=== PATIENT | female | born 1930 | race Caucasian/White ===

== ENCOUNTER 2017-11-02 11:27 | Inpatient (IN) ==
[2017-11-02] MEDS: DEXTROSE 5% NACL 0.45% 1,000 ML IV SCH (12:26)
[2017-11-02] MEDS: cefOXitin 1,000 MG in SYRINGE 1 EACH IV SCH ×2 (14:39→20:55)
[2017-11-03] MEDS: cefOXitin 1,000 MG in SYRINGE 1 EACH IV SCH ×4 (02:55→20:17)
[2017-11-03] MEDS: DEXTROSE 5% NACL 0.45% 1,000 ML IV SCH ×2 (04:41→14:55)
[2017-11-03] MEDS: LISINOPRIL 10 MG TABLET PO SCH (09:35)
[2017-11-03] MEDS: ASPIRIN EC 81 MG TABLET PO SCH (09:35)
[2017-11-03] MEDS: GABAPENTIN 300 MG CAPSULE PO SCH ×3 (09:36→20:17)
[2017-11-03] MEDS: OXYBUTYNIN 5 MG TABLET PO SCH ×2 (09:36→20:17)
[2017-11-03] MEDS: PANTOPRAZOLE 40 MG TABLET PO SCH (09:36)
[2017-11-04] MEDS: cefOXitin 1,000 MG in SYRINGE 1 EACH IV SCH ×4 (01:20→20:34)
[2017-11-04] MEDS: DEXTROSE 5% NACL 0.45% 1,000 ML IV SCH ×2 (04:14→20:34)
[2017-11-04 05:17] LABS: Basophils % 0.4 % (0.0-0.8); Eosinophils # 0.3 10*3/uL (0.0-0.87); Eosinophils % 2.9 % (0.00-10.9); Hematocrit 33.6 VOL% (35.7-47.0); Hemoglobin 11.2 GM/DL (12.0-16.0); Immature Granulocytes % 0.1 %; Immature Granulocytes Absolute 0.01 #; Lymphocytes # 5.3 10*3/uL (1.4-4.0); Mean Corpuscular HGB Conc 33.3 GM/DL (32-36); Mean Corpuscular Hemoglobin 31 PG (27-34); Mean Corpuscular Volume 93.6 FL (87-102); Mean Platelet Volume 10.1 FL (9.6-12.0); Monocytes # 0.7 10*3/uL (0.11-0.8); Monocytes % 6.5 % (1.7-12.7); Neutrophils # 3.7 10*3/uL (1.4-7.4); Neutrophils % 37.1 % (38.7-73.9); Platelet Count 201 T/CUMM (130-400); Red Blood Count 3.59 MC/CUMM (3.8-5.5); Red Cell Distribution Width 13.2 % (9.3-17.3)
[2017-11-04 06:24] LABS: Band Neutrophils 3 % (0-10); Eosinophils 2 % (0-10); Lymphocytes 51 % (20-55); Metamyelocytes 3 %; Platelet Estimate Normal; Segmented Neutrophils 34 % (50-85); Total Cells Counted 100
[2017-11-04 07:40] LABS: Sedimentation Rate-Westergren 14 MM/HR (0-30)
[2017-11-04] MEDS: GABAPENTIN 300 MG CAPSULE PO SCH ×3 (09:38→20:34)
[2017-11-04] MEDS: OXYBUTYNIN 5 MG TABLET PO SCH ×2 (09:38→20:34)
[2017-11-04] MEDS: ASPIRIN EC 81 MG TABLET PO SCH (09:38)
[2017-11-04] MEDS: LISINOPRIL 10 MG TABLET PO SCH (09:39)
[2017-11-04] MEDS: PANTOPRAZOLE 40 MG TABLET PO SCH (09:39)
[2017-11-05] MEDS: cefOXitin 1,000 MG in SYRINGE 1 EACH IV SCH ×4 (04:04→21:11)
[2017-11-05 05:53] LABS: Basophils # 0.1 10*3/uL (0.0-0.2); Basophils % 0.5 % (0.0-0.8); Eosinophils # 0.5 10*3/uL (0.0-0.87); Eosinophils % 3.9 % (0.00-10.9); Hematocrit 34.4 VOL% (35.7-47.0); Hemoglobin 11.5 GM/DL (12.0-16.0); Immature Granulocytes % 0.3 %; Immature Granulocytes Absolute 0.04 #; Lymphocytes # 7.4 10*3/uL (1.4-4.0); Lymphocytes % 57.7 % (21.3-54.2); Mean Corpuscular HGB Conc 33.4 GM/DL (32-36); Mean Corpuscular Hemoglobin 31 PG (27-34); Mean Platelet Volume 10.4 FL (9.6-12.0); Monocytes # 0.6 10*3/uL (0.11-0.8); Monocytes % 4.5 % (1.7-12.7); Neutrophils # 4.2 10*3/uL (1.4-7.4); Neutrophils % 33.1 % (38.7-73.9); Platelet Count 211 T/CUMM (130-400); Red Blood Count 3.74 MC/CUMM (3.8-5.5); Red Cell Distribution Width 12.9 % (9.3-17.3); White Blood Count 12.8 T/CUMM (4-12)
[2017-11-05 06:34] LABS: Band Neutrophils 1 % (0-10); Eosinophils 5 % (0-10); Giant Platelets Few; Hypochromasia 1+; Lymphocytes 45 % (20-55); Ovalocytes Slight; Platelet Estimate Adequate; Segmented Neutrophils 44 % (50-85); Total Cells Counted 100
[2017-11-05] MEDS: ASPIRIN EC 81 MG TABLET PO SCH (08:52)
[2017-11-05] MEDS: GABAPENTIN 300 MG CAPSULE PO SCH ×3 (08:53→21:11)
[2017-11-05] MEDS: PANTOPRAZOLE 40 MG TABLET PO SCH (08:53)
[2017-11-05] MEDS: OXYBUTYNIN 5 MG TABLET PO SCH ×2 (08:53→21:11)
[2017-11-05] MEDS: LISINOPRIL 10 MG TABLET PO SCH (08:54)
[2017-11-05] MEDS: DEXTROSE 5% NACL 0.45% 1,000 ML IV SCH (10:13)
[2017-11-06] MEDS: cefOXitin 1,000 MG in SYRINGE 1 EACH IV SCH ×4 (01:06→20:38)
[2017-11-06] MEDS: DEXTROSE 5% NACL 0.45% 1,000 ML IV SCH ×2 (01:07→14:29)
[2017-11-06 05:19] LABS: Basophils % 0.2 % (0.0-0.8); Eosinophils # 0.5 10*3/uL (0.0-0.87); Eosinophils % 5.5 % (0.00-10.9); Hemoglobin 10.6 GM/DL (12.0-16.0); Immature Granulocytes % 0.2 %; Immature Granulocytes Absolute 0.02 #; Lymphocytes # 5.1 10*3/uL (1.4-4.0); Lymphocytes % 51.7 % (21.3-54.2); Mean Corpuscular HGB Conc 33.1 GM/DL (32-36); Mean Corpuscular Hemoglobin 31 PG (27-34); Mean Platelet Volume 10.2 FL (9.6-12.0); Monocytes # 0.8 10*3/uL (0.11-0.8); Monocytes % 7.6 % (1.7-12.7); Neutrophils # 3.5 10*3/uL (1.4-7.4); Neutrophils % 34.8 % (38.7-73.9); Platelet Count 198 T/CUMM (130-400); Red Blood Count 3.48 MC/CUMM (3.8-5.5); White Blood Count 9.9 T/CUMM (4-12)
[2017-11-06 05:51] LABS: Band Neutrophils 1 % (0-10); Eosinophils 5 % (0-10); Lymphocytes 58 % (20-55); Segmented Neutrophils 29 % (50-85); Total Cells Counted 100
[2017-11-06 05:55] LABS: Hypochromasia 1+; Platelet Estimate Normal
[2017-11-06 05:56] LABS: Giant Platelets Few
[2017-11-06] MEDS: GABAPENTIN 300 MG CAPSULE PO SCH ×3 (09:32→20:38)
[2017-11-06] MEDS: OXYBUTYNIN 5 MG TABLET PO SCH ×2 (09:32→20:38)
[2017-11-06] MEDS: PANTOPRAZOLE 40 MG TABLET PO SCH (09:32)
[2017-11-06] MEDS: ASPIRIN EC 81 MG TABLET PO SCH (09:32)
[2017-11-06] MEDS: LISINOPRIL 10 MG TABLET PO SCH (09:32)
[2017-11-07] MEDS: DEXTROSE 5% NACL 0.45% 1,000 ML IV SCH (02:34)
[2017-11-07] MEDS: cefOXitin 1,000 MG in SYRINGE 1 EACH IV SCH ×2 (02:37→09:07)
[2017-11-07] MEDS ORDERED: POLYETHYLENE GLYCOL POWDER 17 GM PACK PO SCH (09:00)
[2017-11-07] MEDS: LISINOPRIL 10 MG TABLET PO SCH (09:06)
[2017-11-07] MEDS: PANTOPRAZOLE 40 MG TABLET PO SCH (09:07)
[2017-11-07] MEDS: GABAPENTIN 300 MG CAPSULE PO SCH (09:07)
[2017-11-07] MEDS: ASPIRIN EC 81 MG TABLET PO SCH (09:07)
[2017-11-07] MEDS: OXYBUTYNIN 5 MG TABLET PO SCH (09:07)
[2017-11-07 11:26] VITALS: BP 121/68
== END 2017-11-07 13:34 | disposition home or self-care (01) | DRG 392 ==
LOC: N.3E
PROVIDERS: ADMIT Surgery; ATTEND Surgery

== ENCOUNTER 2017-11-10 17:37 | Inpatient (IN) ==
[2017-11-10] MEDS ORDERED: SODIUM CHLORIDE 0.9% 1,000 ML IV STA (18:04)
[2017-11-10] MEDS ORDERED: ONDANSETRON 4 MG/2 ML VIAL IV STA (18:04)
[2017-11-10] MEDS ORDERED: ALBUTEROL/IPRATROPIUM 3 ML NEB RESP TX STA (18:04)
[2017-11-10] MEDS ORDERED: cefTRIAXone 1,000 MG in SODIUM CHLORIDE 0.9% 100 ML IV STA (18:04)
[2017-11-10] MEDS ORDERED: METOCLOPRAMIDE 10 MG/2 ML VIAL IV STA (18:04)
[2017-11-10] MEDS ORDERED: metroNIDAZOLE INJ 500 MG in PREMIX 1 EACH IV STA (18:04)
[2017-11-10 19:21] LABS: Basophils % 0.2 % (0.0-0.8); Hematocrit 39.2 VOL% (35.7-47.0); Hemoglobin 12.7 GM/DL (12.0-16.0); Immature Granulocytes % 0.6 %; Immature Granulocytes Absolute 0.12 #; Lymphocytes # 7.1 10*3/uL (1.4-4.0); Lymphocytes % 35.3 % (21.3-54.2); Mean Corpuscular HGB Conc 32.4 GM/DL (32-36); Mean Corpuscular Hemoglobin 30 PG (27-34); Mean Corpuscular Volume 93.8 FL (87-102); Mean Platelet Volume 10.2 FL (9.6-12.0); Monocytes # 1.4 10*3/uL (0.11-0.8); Monocytes % 6.8 % (1.7-12.7); Neutrophils # 11.5 10*3/uL (1.4-7.4); Neutrophils % 57.1 % (38.7-73.9); Platelet Count 243 T/CUMM (130-400); Red Blood Count 4.18 MC/CUMM (3.8-5.5); Red Cell Distribution Width 13.2 % (9.3-17.3); White Blood Count 20.2 T/CUMM (4-12)
[2017-11-10] MEDS ORDERED: METOCLOPRAMIDE 10 MG/2 ML VIAL ONE (19:30)
[2017-11-10] MEDS ORDERED: cefTRIAXone 1,000 MG VIAL ONE (19:30)
[2017-11-10] MEDS ORDERED: metroNIDAZOLE 500 MG/100 ML PREMIX IV ONE (19:30)
[2017-11-10] MEDS ORDERED: ONDANSETRON 4 MG/2 ML VIAL ONE (19:31)
[2017-11-10 19:40] LABS: Albumin 3.8 G/DL (3.4-5.0); Bilirubin,Total 0.4 MG/DL (0.2-1.0); Calcium 8.9 MG/DL (8.5-10.1); Lactic Acid 1.5 MMOL/L (0.4-2.0); Osmolality,Calculated 275.2 MOS/KG (273-304); Potassium 4.1 MMOL/L (3.5-5.1); Total Protein 7.5 G/DL (6.4-8.3)
[2017-11-11] MEDS ORDERED: HYDROmorphone 2 MG/1 ML VIAL IV PRN (00:15)
[2017-11-11] MEDS ORDERED: ONDANSETRON 4 MG/2 ML VIAL IV PRN (00:15)
[2017-11-11] MEDS: metroNIDAZOLE INJ 500 MG in PREMIX 1 EACH IV SCH ×5 (01:13→23:32)
[2017-11-11] MEDS: LACTATED RINGERS 1,000 ML IV SCH ×4 (01:13→21:41)
[2017-11-11] MEDS: METOCLOPRAMIDE 10 MG/2 ML VIAL IV SCH ×5 (01:14→23:13)
[2017-11-11 08:07] LABS: Basophils % 0.2 % (0.0-0.8); Eosinophils % 0.1 % (0.00-10.9); Hematocrit 33.1 VOL% (35.7-47.0); Immature Granulocytes % 0.4 %; Immature Granulocytes Absolute 0.06 #; Lymphocytes # 4.7 10*3/uL (1.4-4.0); Lymphocytes % 30.2 % (21.3-54.2); Mean Corpuscular HGB Conc 32.3 GM/DL (32-36); Mean Corpuscular Hemoglobin 30 PG (27-34); Mean Corpuscular Volume 93.8 FL (87-102); Mean Platelet Volume 10.1 FL (9.6-12.0); Monocytes % 6.7 % (1.7-12.7); Neutrophils # 9.6 10*3/uL (1.4-7.4); Neutrophils % 62.4 % (38.7-73.9); Platelet Count 212 T/CUMM (130-400); Red Blood Count 3.53 MC/CUMM (3.8-5.5); Red Cell Distribution Width 13.2 % (9.3-17.3); White Blood Count 15.4 T/CUMM (4-12)
[2017-11-11 08:10] LABS: Hemoglobin 10.7 GM/DL (12.0-16.0)
[2017-11-11 08:28] LABS: Lactic Acid 0.8 MMOL/L (0.4-2.0)
[2017-11-11 08:40] LABS: Alanine Aminotransferase 19 U/L (13-56); Albumin 2.9 G/DL (3.4-5.0); Alkaline Phosphatase 45 U/L (45-117); Aspartate Amino Transferase 21 U/L (0-37); Bilirubin,Total < 0.39 MG/DL (0.2-1.0); Blood Urea Nitrogen 18 MG/DL (7-18); Calcium 7.9 MG/DL (8.5-10.1); Glucose 101 MG/DL (74-106); Osmolality,Calculated 282.3 MOS/KG (273-304); Potassium 4.3 MMOL/L (3.5-5.1); Sodium 141 MMOL/L (136-145); Total Protein 5.5 G/DL (6.4-8.3)
[2017-11-11] MEDS: PANTOPRAZOLE 40 MG VIAL IV SCH (09:27)
[2017-11-11] MEDS: cefTRIAXone 2,000 MG in SYRINGE 1 EACH IV SCH (17:52)
[2017-11-12 03:37] LABS: Basophils # 0.1 10*3/uL (0.0-0.2); Basophils % 0.2 % (0.0-0.8); Eosinophils % 0.1 % (0.00-10.9); Hematocrit 33.7 VOL% (35.7-47.0); Hemoglobin 11.2 GM/DL (12.0-16.0); Immature Granulocytes % 0.4 %; Immature Granulocytes Absolute 0.09 #; Lymphocytes # 8.6 10*3/uL (1.4-4.0); Lymphocytes % 40.8 % (21.3-54.2); Mean Corpuscular HGB Conc 33.2 GM/DL (32-36); Mean Corpuscular Hemoglobin 31 PG (27-34); Mean Corpuscular Volume 93.4 FL (87-102); Mean Platelet Volume 10.7 FL (9.6-12.0); Monocytes # 1.4 10*3/uL (0.11-0.8); Monocytes % 6.7 % (1.7-12.7); Neutrophils # 10.9 10*3/uL (1.4-7.4); Neutrophils % 51.8 % (38.7-73.9); Platelet Count 212 T/CUMM (130-400); Red Blood Count 3.61 MC/CUMM (3.8-5.5); Red Cell Distribution Width 13.2 % (9.3-17.3)
[2017-11-12 03:58] LABS: Calcium 8.2 MG/DL (8.5-10.1); Osmolality,Calculated 282.1 MOS/KG (273-304)
[2017-11-12 05:04] LABS: Lymphocytes 21 % (20-55); Platelet Estimate Normal; Segmented Neutrophils 73 % (50-85); Total Cells Counted 100
[2017-11-12] MEDS: METOCLOPRAMIDE 10 MG/2 ML VIAL IV SCH ×3 (06:02→18:49)
[2017-11-12] MEDS: metroNIDAZOLE INJ 500 MG in PREMIX 1 EACH IV SCH ×3 (06:02→20:21)
[2017-11-12] MEDS: LACTATED RINGERS 1,000 ML IV SCH ×3 (06:05→17:35)
[2017-11-12] MEDS: PANTOPRAZOLE 40 MG VIAL IV SCH (09:16)
[2017-11-12 15:37] LABS: Apearance,Urine Slightly Hazy (Clear); Bacteria,Urine Occasional /HPF (Few); Bilirubin,Urine Negative (Negative); Blood, Urine Moderate mg/dL (Negative); Glucose,Urine (UA) Negative (Negative); Ketones,Urine 80 mg/dL (Negative); Mucus,Urine Occasional /LPF (Occasional); Nitrite,Urine Negative (Negative); Protein,Urine Negative; RBC,Urine 11 /HPF (0-4); Squamous Epithelial Cell,Urine Occasional /HPF (0-10); Urine Color Yellow (Yellow); Urine Specific Gravity 1.014 (1.001-1.035); Urine Urobilinogen < 2.0 EU/DL (0.2-1.0); WBC,Urine 6 /HPF (0-6)
[2017-11-12] MEDS: FAT EMULSION 20% 250 ML IV SCH (18:35)
[2017-11-12] MEDS: cefTRIAXone 2,000 MG in SYRINGE 1 EACH IV SCH (18:51)
[2017-11-12] MEDS: MULTIVITAMIN IV SCH (20:21)
[2017-11-12] MEDS: ELECTROLYTE IV SCH (20:21)
[2017-11-12] MEDS: TRACE ELEMENTS IV SCH (20:21)
[2017-11-12] MEDS: [UNRECOGNIZED DRUG - OTHER] IV SCH (20:21)
[2017-11-13] MEDS: metroNIDAZOLE INJ 500 MG in PREMIX 1 EACH IV SCH ×5 (00:16→23:40)
[2017-11-13] MEDS: METOCLOPRAMIDE 10 MG/2 ML VIAL IV SCH ×5 (00:16→23:40)
[2017-11-13 04:20] LABS: Basophils % 0.1 % (0.0-0.8); Hematocrit 29.7 VOL% (35.7-47.0); Hemoglobin 9.7 GM/DL (12.0-16.0); Immature Granulocytes % 0.8 %; Immature Granulocytes Absolute 0.11 #; Lymphocytes # 2.5 10*3/uL (1.4-4.0); Lymphocytes % 17.9 % (21.3-54.2); Mean Corpuscular HGB Conc 32.7 GM/DL (32-36); Mean Corpuscular Hemoglobin 31 PG (27-34); Mean Corpuscular Volume 93.4 FL (87-102); Mean Platelet Volume 10.7 FL (9.6-12.0); Monocytes # 1.2 10*3/uL (0.11-0.8); Monocytes % 8.3 % (1.7-12.7); Neutrophils # 10.2 10*3/uL (1.4-7.4); Neutrophils % 72.9 % (38.7-73.9); Platelet Count 178 T/CUMM (130-400); Red Blood Count 3.18 MC/CUMM (3.8-5.5); Red Cell Distribution Width 12.8 % (9.3-17.3)
[2017-11-13 04:51] LABS: Calcium 7.7 MG/DL (8.5-10.1); Magnesium 1.8 MG/DL (1.8-2.4); Osmolality,Calculated 289.1 MOS/KG (273-304); Potassium 3.7 MMOL/L (3.5-5.1); Prealbumin 10.8 MG/DL (20-40)
[2017-11-13] MEDS: LACTATED RINGERS 1,000 ML IV SCH ×3 (05:50→19:50)
[2017-11-13] MEDS: PANTOPRAZOLE 40 MG VIAL IV SCH (10:14)
[2017-11-13] MEDS: ALBUTEROL/IPRATROPIUM 3 ML NEB RESP TX SCH ×4 (12:00→23:36)
[2017-11-13] MEDS: cefTRIAXone 2,000 MG in SYRINGE 1 EACH IV SCH (18:49)
[2017-11-13] MEDS: ENOXAPARIN 40 MG/0.4 ML SYRINGE SUBCUT SCH (21:19)
[2017-11-13] MEDS: ELECTROLYTE IV SCH (21:20)
[2017-11-13] MEDS: TRACE ELEMENTS IV SCH (21:20)
[2017-11-13] MEDS: [UNRECOGNIZED DRUG - OTHER] IV SCH (21:20)
[2017-11-13] MEDS: MULTIVITAMIN IV SCH (21:20)
[2017-11-13] MEDS: ACETAMINOPHEN 325 MG TABLET PO PRN (23:40)
[2017-11-14] MEDS: LACTATED RINGERS 1,000 ML IV SCH (02:40)
[2017-11-14 03:24] LABS: Basophils % 0.2 % (0.0-0.8); Eosinophils % 0.1 % (0.00-10.9); Hematocrit 26.6 VOL% (35.7-47.0); Hemoglobin 9.7 GM/DL (12.0-16.0); Immature Granulocytes % 0.5 %; Immature Granulocytes Absolute 0.07 #; Lymphocytes # 4.4 10*3/uL (1.4-4.0); Lymphocytes % 33.2 % (21.3-54.2); Mean Corpuscular HGB Conc 36.5 GM/DL (32-36); Mean Corpuscular Hemoglobin 33 PG (27-34); Mean Corpuscular Volume 89.3 FL (87-102); Mean Platelet Volume 11.9 FL (9.6-12.0); Monocytes # 1.2 10*3/uL (0.11-0.8); Monocytes % 8.7 % (1.7-12.7); Neutrophils # 7.6 10*3/uL (1.4-7.4); Neutrophils % 57.3 % (38.7-73.9); Platelet Count 474 T/CUMM (130-400); Red Blood Count 2.98 MC/CUMM (3.8-5.5); Red Cell Distribution Width 13.4 % (9.3-17.3); White Blood Count 13.2 T/CUMM (4-12)
[2017-11-14 03:52] LABS: Calcium 8.1 MG/DL (8.5-10.1); Magnesium 1.8 MG/DL (1.8-2.4); Osmolality,Calculated 295.6 MOS/KG (273-304); Potassium 3.4 MMOL/L (3.5-5.1)
[2017-11-14 03:53] LABS: Calcium 8.2 MG/DL (8.5-10.1); Magnesium 1.8 MG/DL (1.8-2.4); Osmolality,Calculated 296.6 MOS/KG (273-304); Potassium 3.4 MMOL/L (3.5-5.1)
[2017-11-14] MEDS: ALBUTEROL/IPRATROPIUM 3 ML NEB RESP TX SCH ×5 (03:54→20:54)
[2017-11-14] MEDS: metroNIDAZOLE INJ 500 MG in PREMIX 1 EACH IV SCH ×3 (06:40→20:12)
[2017-11-14] MEDS: METOCLOPRAMIDE 10 MG/2 ML VIAL IV SCH ×3 (06:41→20:07)
[2017-11-14] MEDS: PANTOPRAZOLE 40 MG VIAL IV SCH (10:02)
[2017-11-14] MEDS: FAT EMULSION 20% 250 ML IV SCH (20:06)
[2017-11-14] MEDS: cefTRIAXone 2,000 MG in SYRINGE 1 EACH IV SCH (20:09)
[2017-11-14] MEDS: ENOXAPARIN 40 MG/0.4 ML SYRINGE SUBCUT SCH (21:25)
[2017-11-14] MEDS: ELECTROLYTE IV SCH (21:36)
[2017-11-14] MEDS: [UNRECOGNIZED DRUG - OTHER] IV SCH (21:36)
[2017-11-14] MEDS: TRACE ELEMENTS IV SCH (21:36)
[2017-11-14] MEDS: MULTIVITAMIN IV SCH (21:36)
[2017-11-15] MEDS: METOCLOPRAMIDE 10 MG/2 ML VIAL IV SCH ×5 (00:30→23:45)
[2017-11-15] MEDS: metroNIDAZOLE INJ 500 MG in PREMIX 1 EACH IV SCH ×5 (00:35→23:45)
[2017-11-15] MEDS: ALBUTEROL/IPRATROPIUM 3 ML NEB RESP TX SCH ×7 (00:53→23:25)
[2017-11-15] MEDS: ACETAMINOPHEN 325 MG TABLET PO PRN ×2 (01:35→20:51)
[2017-11-15 06:47] LABS: Basophils % 0.2 % (0.0-0.8); Eosinophils % 0.2 % (0.00-10.9); Hematocrit 27.7 VOL% (35.7-47.0); Hemoglobin 9.1 GM/DL (12.0-16.0); Immature Granulocytes % 1.1 %; Immature Granulocytes Absolute 0.12 #; Lymphocytes # 3.4 10*3/uL (1.4-4.0); Lymphocytes % 29.9 % (21.3-54.2); Mean Corpuscular HGB Conc 32.9 GM/DL (32-36); Mean Corpuscular Hemoglobin 30 PG (27-34); Mean Corpuscular Volume 92.3 FL (87-102); Mean Platelet Volume 10.4 FL (9.6-12.0); Monocytes # 1.1 10*3/uL (0.11-0.8); Monocytes % 9.7 % (1.7-12.7); Neutrophils # 6.7 10*3/uL (1.4-7.4); Neutrophils % 58.9 % (38.7-73.9); Platelet Count 202 T/CUMM (130-400); Red Cell Distribution Width 12.8 % (9.3-17.3); White Blood Count 11.3 T/CUMM (4-12)
[2017-11-15 07:19] LABS: Calcium 7.9 MG/DL (8.5-10.1); Magnesium 1.7 MG/DL (1.8-2.4); Osmolality,Calculated 286.3 MOS/KG (273-304)
[2017-11-15 07:28] LABS: Hypochromasia 1+; Lymphocytes 25 % (20-55); Platelet Estimate Adequate; Segmented Neutrophils 66 % (50-85); Total Cells Counted 100
[2017-11-15] MEDS ORDERED: POTASSIUM CHLORIDE RIDER 10 MEQ in PREMIX 1 EACH IV PRN (08:37)
[2017-11-15] MEDS ORDERED: POTASSIUM CHLORIDE RIDER 20 MEQ in PREMIX 1 EACH IV PRN (08:37)
[2017-11-15] MEDS: PANTOPRAZOLE 40 MG VIAL IV SCH (09:34)
[2017-11-15] MEDS: TRACE ELEMENTS IV SCH (17:28)
[2017-11-15] MEDS: ELECTROLYTE IV SCH (17:28)
[2017-11-15] MEDS: MULTIVITAMIN IV SCH (17:28)
[2017-11-15] MEDS: [UNRECOGNIZED DRUG - OTHER] IV SCH (17:28)
[2017-11-15] MEDS: cefTRIAXone 2,000 MG in SYRINGE 1 EACH IV SCH (17:37)
[2017-11-15] MEDS ORDERED: POTASSIUM PHOSPHATE 30 MMOL in SODIUM CHLORIDE 0.9% 250 ML IV ONE (18:00)
[2017-11-15] MEDS: ENOXAPARIN 40 MG/0.4 ML SYRINGE SUBCUT SCH (20:44)
[2017-11-15] MEDS ORDERED: ZINC OXIDE PASTE 113 GM TUBE TOP PRN (21:04)
[2017-11-16] MEDS: ALBUTEROL/IPRATROPIUM 3 ML NEB RESP TX SCH ×6 (04:02→23:27)
[2017-11-16] MEDS: metroNIDAZOLE INJ 500 MG in PREMIX 1 EACH IV SCH ×3 (05:47→18:31)
[2017-11-16] MEDS: METOCLOPRAMIDE 10 MG/2 ML VIAL IV SCH ×3 (05:51→17:51)
[2017-11-16 06:44] LABS: Calcium 7.7 MG/DL (8.5-10.1); Magnesium 1.8 MG/DL (1.8-2.4); Osmolality,Calculated 283.3 MOS/KG (273-304); Potassium 3.6 MMOL/L (3.5-5.1)
[2017-11-16] MEDS ORDERED: DEXTROSE 10% 1,000 ML IV PRN (09:41)
[2017-11-16] MEDS: PANTOPRAZOLE 40 MG VIAL IV SCH (10:55)
[2017-11-16] MEDS: FAT EMULSION 20% 250 ML IV SCH (14:17)
[2017-11-16] MEDS: TRACE ELEMENTS (5) 1 ML, MULTIVITAMIN INJ 10 ML in AMINO ACIDS/DEXT/LYTES 5-15% 2,000 ML IV SCH (17:50)
[2017-11-16] MEDS: cefTRIAXone 2,000 MG in SYRINGE 1 EACH IV SCH (17:51)
[2017-11-16] MEDS: ENOXAPARIN 40 MG/0.4 ML SYRINGE SUBCUT SCH (20:49)
[2017-11-16] MEDS: ACETAMINOPHEN 325 MG TABLET PO PRN (21:56)
[2017-11-17] MEDS: metroNIDAZOLE INJ 500 MG in PREMIX 1 EACH IV SCH ×4 (01:21→18:35)
[2017-11-17] MEDS: METOCLOPRAMIDE 10 MG/2 ML VIAL IV SCH ×4 (01:31→18:24)
[2017-11-17] MEDS: ALBUTEROL/IPRATROPIUM 3 ML NEB RESP TX SCH ×5 (04:31→21:32)
[2017-11-17 06:01] LABS: Basophils % 0.4 % (0.0-0.8); Eosinophils # 0.7 10*3/uL (0.0-0.87); Eosinophils % 6.3 % (0.00-10.9); Hematocrit 30.4 VOL% (35.7-47.0); Immature Granulocytes % 0.9 %; Immature Granulocytes Absolute 0.09 #; Lymphocytes # 3.7 10*3/uL (1.4-4.0); Lymphocytes % 35.1 % (21.3-54.2); Mean Corpuscular HGB Conc 32.9 GM/DL (32-36); Mean Corpuscular Hemoglobin 30 PG (27-34); Mean Corpuscular Volume 90.5 FL (87-102); Mean Platelet Volume 10.7 FL (9.6-12.0); Monocytes % 9.2 % (1.7-12.7); Neutrophils # 5.1 10*3/uL (1.4-7.4); Neutrophils % 48.1 % (38.7-73.9); Platelet Count 263 T/CUMM (130-400); Red Blood Count 3.36 MC/CUMM (3.8-5.5); Red Cell Distribution Width 12.7 % (9.3-17.3); White Blood Count 10.6 T/CUMM (4-12)
[2017-11-17 06:24] LABS: Eosinophils 5 % (0-10); Giant Platelets Few; Hypochromasia 1+; Lymphocytes 29 % (20-55); Ovalocytes Slight; Platelet Estimate Adequate; Segmented Neutrophils 53 % (50-85); Total Cells Counted 100
[2017-11-17 06:31] LABS: Calcium 7.8 MG/DL (8.5-10.1); Magnesium 1.8 MG/DL (1.8-2.4); Osmolality,Calculated 281.3 MOS/KG (273-304); Potassium 3.6 MMOL/L (3.5-5.1)
[2017-11-17] MEDS: PANTOPRAZOLE 40 MG VIAL IV SCH (08:27)
[2017-11-17] MEDS: FAT EMULSION 20% 250 ML IV SCH (15:51)
[2017-11-17] MEDS: TRACE ELEMENTS (5) 1 ML, MULTIVITAMIN INJ 10 ML in AMINO ACIDS/DEXT/LYTES 5-15% 2,000 ML IV SCH (17:23)
[2017-11-17] MEDS: cefTRIAXone 2,000 MG in SYRINGE 1 EACH IV SCH (18:24)
[2017-11-17] MEDS: ENOXAPARIN 40 MG/0.4 ML SYRINGE SUBCUT SCH (21:31)
[2017-11-18 00:13] LABS: Basophils # 0.1 10*3/uL (0.0-0.2); Basophils % 0.4 % (0.0-0.8); Eosinophils # 0.8 10*3/uL (0.0-0.87); Eosinophils % 6.2 % (0.00-10.9); Hematocrit 33.2 VOL% (35.7-47.0); Immature Granulocytes % 0.7 %; Lymphocytes # 4.6 10*3/uL (1.4-4.0); Lymphocytes % 34.7 % (21.3-54.2); Mean Corpuscular HGB Conc 33.1 GM/DL (32-36); Mean Corpuscular Hemoglobin 30 PG (27-34); Mean Corpuscular Volume 90.7 FL (87-102); Mean Platelet Volume 10.2 FL (9.6-12.0); Monocytes # 1.4 10*3/uL (0.11-0.8); Monocytes % 10.2 % (1.7-12.7); Neutrophils # 6.4 10*3/uL (1.4-7.4); Neutrophils % 47.8 % (38.7-73.9); Platelet Count 324 T/CUMM (130-400); Red Blood Count 3.66 MC/CUMM (3.8-5.5); Red Cell Distribution Width 12.9 % (9.3-17.3); White Blood Count 13.4 T/CUMM (4-12)
[2017-11-18] MEDS: ACETAMINOPHEN 325 MG TABLET PO PRN ×2 (00:31→20:30)
[2017-11-18] MEDS: METOCLOPRAMIDE 10 MG/2 ML VIAL IV SCH ×2 (00:37→06:56)
[2017-11-18] MEDS: metroNIDAZOLE INJ 500 MG in PREMIX 1 EACH IV SCH ×4 (00:41→18:58)
[2017-11-18] MEDS: ALBUTEROL/IPRATROPIUM 3 ML NEB RESP TX SCH ×6 (00:42→19:29)
[2017-11-18 00:43] LABS: Alanine Aminotransferase 22 U/L (13-56); Albumin 2.3 G/DL (3.4-5.0); Alkaline Phosphatase 50 U/L (45-117); Aspartate Amino Transferase 31 U/L (0-37); Bilirubin,Total < 0.39 MG/DL (0.2-1.0); Blood Urea Nitrogen 19 MG/DL (7-18); Calcium 7.9 MG/DL (8.5-10.1); Glucose 142 MG/DL (74-106); Magnesium 1.6 MG/DL (1.8-2.4); Osmolality,Calculated 284.3 MOS/KG (273-304); Potassium 3.6 MMOL/L (3.5-5.1); Sodium 141 MMOL/L (136-145); Troponin I Only 0.016 NG/ML (0.00-0.045)
[2017-11-18] MEDS ORDERED: CIPROFLOXACIN INJ 400 MG in PREMIX 1 EACH IV SCH (01:00)
[2017-11-18] MEDS ORDERED: CALCIUM GLUCONATE 1,000 MG in SODIUM CHLORIDE 0.9% 100 ML IV ONE (01:00)
[2017-11-18] MEDS ORDERED: MAGNESIUM SULF RIDER 1 GM in PREMIX 1 EACH IV ONE (01:01)
[2017-11-18] MEDS: FLUTICASONE 50 MCG NASAL SPRAY 16 GM BOTTLE BOTH NARES SCH ×2 (02:25→09:09)
[2017-11-18] MEDS: ENOXAPARIN 60 MG/0.6 ML SYRINGE SUBCUT SCH ×2 (02:56→13:33)
[2017-11-18] MEDS: LEVOFLOXACIN INJ 750 MG in PREMIX 1 EACH IV SCH (02:56)
[2017-11-18] MEDS: METOPROLOL TARTRATE 5 MG/5 ML VIAL IV SCH ×2 (02:56→06:56)
[2017-11-18] MEDS ORDERED: FUROSEMIDE 20 MG/2 ML VIAL ONE (05:04)
[2017-11-18 05:14] LABS: Allen Test Positive; Pt O2 Delivery Device Venturi Mask
[2017-11-18 05:19] LABS: ABG Base Excess -3.1 MMOL/L (-2.5-2.5); ABG HCO3 26.5 MMOL/L (20-26); ABG Oxygen Saturation 98.5 % (95-100); ABG PCO2 71.4 MM HG (35-48); ABG TCO2 28.7 MMOL/L (23-27)
[2017-11-18 05:23] LABS: ABG PH 7.188 (7.35-7.45)
[2017-11-18] MEDS ORDERED: ADENOSINE 6 MG/2 ML VIAL ONE ×2 (05:23→05:28)
[2017-11-18] MEDS ORDERED: ETOMIDATE 20 MG/10 ML VIAL IV ONE ×2 (05:28→06:11)
[2017-11-18] MEDS ORDERED: SUCCINYLCHOLINE 200 MG/10 ML VIAL ONE (05:29)
[2017-11-18] MEDS ORDERED: PROPOFOL 1,000 MG/100 ML BOTTLE IV ONE (05:39)
[2017-11-18] MEDS ORDERED: METOPROLOL TARTRATE 5 MG/5 ML VIAL IV SCH (06:00)
[2017-11-18] MEDS: PROPOFOL 1,000 MG/100 ML BOTTLE IV SCH ×4 (06:00→23:46)
[2017-11-18] MEDS ORDERED: SUCCINYLCHOLINE 200 MG/10 ML VIAL IV ONE (06:11)
[2017-11-18] MEDS ORDERED: ADENOSINE 6 MG/2 ML VIAL IV ONE (06:11)
[2017-11-18 06:13] LABS: Calcium 8.2 MG/DL (8.5-10.1); Osmolality,Calculated 281.7 MOS/KG (273-304); Potassium 4.7 MMOL/L (3.5-5.1)
[2017-11-18 06:17] LABS: Allen Test Positive; Pt O2 Delivery Device Ventilator
[2017-11-18 06:18] LABS: ABG Base Excess -1.6 MMOL/L (-2.5-2.5); ABG HCO3 25.7 MMOL/L (20-26); ABG Oxygen Saturation 97.9 % (95-100); ABG PCO2 55.2 MM HG (35-48); ABG PH 7.286 (7.35-7.45); ABG TCO2 27.4 MMOL/L (23-27)
[2017-11-18] MEDS ORDERED: SODIUM CHLORIDE 0.9% 500 ML IV ONE (06:34)
[2017-11-18 06:52] LABS: Apearance,Urine CLEAR (Clear); Bilirubin,Urine Negative (Negative); Blood, Urine Small mg/dL (Negative); Glucose,Urine (UA) Negative (Negative); Hyaline Casts,Urine 5 /LPF (0-3); Ketones,Urine Negative (Negative); Nitrite,Urine Negative (Negative); Protein,Urine 30 MG/DL; RBC,Urine 2 /HPF (0-4); Squamous Epithelial Cell,Urine Occasional /HPF (0-10); Urine Color Yellow (Yellow); Urine Specific Gravity 1.006 (1.001-1.035); Urine Urobilinogen < 2.0 EU/DL (0.2-1.0); WBC,Urine 18 /HPF (0-6)
[2017-11-18] MEDS: PHENYLEPHRINE DRIP 40 MG/250 ML PREMIX IV SCH ×2 (06:58→13:37)
[2017-11-18] MEDS ORDERED: FLUTICASONE 50 MCG NASAL SPRAY 16 GM BOTTLE BOTH NARES SCH (09:00)
[2017-11-18] MEDS: PANTOPRAZOLE 40 MG VIAL IV SCH (09:09)
[2017-11-18 10:38] LABS: Calcium 8.1 MG/DL (8.5-10.1); Magnesium 1.9 MG/DL (1.8-2.4); Osmolality,Calculated 283.4 MOS/KG (273-304)
[2017-11-18] MEDS: TRACE ELEMENTS (5) 1 ML, MULTIVITAMIN INJ 10 ML in AMINO ACIDS/DEXT/LYTES 5-15% 2,000 ML IV SCH (18:59)
[2017-11-18] MEDS: SODIUM CHLORIDE 0.9% 1,000 ML IV SCH (19:00)
[2017-11-19] MEDS: ALBUTEROL/IPRATROPIUM 3 ML NEB RESP TX SCH ×7 (00:10→23:47)
[2017-11-19] MEDS: PHENYLEPHRINE DRIP 40 MG/250 ML PREMIX IV SCH ×4 (02:21→19:04)
[2017-11-19] MEDS: metroNIDAZOLE INJ 500 MG in PREMIX 1 EACH IV SCH ×3 (02:23→11:33)
[2017-11-19] MEDS: SODIUM CHLORIDE 0.9% 1,000 ML IV SCH ×2 (02:44→12:02)
[2017-11-19] MEDS: ENOXAPARIN 60 MG/0.6 ML SYRINGE SUBCUT SCH (03:00)
[2017-11-19] MEDS: LEVOFLOXACIN INJ 750 MG in PREMIX 1 EACH IV SCH (03:00)
[2017-11-19 03:21] LABS: Basophils # 0.1 10*3/uL (0.0-0.2); Basophils % 0.4 % (0.0-0.8); Eosinophils # 0.4 10*3/uL (0.0-0.87); Hematocrit 32.4 VOL% (35.7-47.0); Hemoglobin 10.8 GM/DL (12.0-16.0); Immature Granulocytes % 1.2 %; Immature Granulocytes Absolute 0.21 #; Mean Corpuscular HGB Conc 33.3 GM/DL (32-36); Mean Corpuscular Hemoglobin 30 PG (27-34); Mean Platelet Volume 11.2 FL (9.6-12.0); Monocytes # 1.6 10*3/uL (0.11-0.8); Monocytes % 9.5 % (1.7-12.7); Neutrophils # 7.9 10*3/uL (1.4-7.4); Neutrophils % 45.9 % (38.7-73.9); Platelet Count 383 T/CUMM (130-400); Red Blood Count 3.56 MC/CUMM (3.8-5.5); Red Cell Distribution Width 13.2 % (9.3-17.3); White Blood Count 17.1 T/CUMM (4-12)
[2017-11-19 03:49] LABS: Calcium 7.3 MG/DL (8.5-10.1); Osmolality,Calculated 290.1 MOS/KG (273-304); Potassium 4.3 MMOL/L (3.5-5.1)
[2017-11-19 03:50] LABS: ABG Base Excess -0.6 MMOL/L (-2.5-2.5); ABG Oxygen Saturation 99.5 % (95-100); ABG PCO2 39.6 MM HG (35-48); ABG PH 7.394 (7.35-7.45); ABG TCO2 21.7 MMOL/L (23-27)
[2017-11-19] MEDS: PROPOFOL 1,000 MG/100 ML BOTTLE IV SCH ×2 (05:01→21:02)
[2017-11-19 07:08] LABS: Burr Cells 1+; Hypochromasia 1+; Ovalocytes Slight; Platelet Estimate Normal
[2017-11-19] MEDS: FLUTICASONE 50 MCG NASAL SPRAY 16 GM BOTTLE BOTH NARES SCH (08:34)
[2017-11-19] MEDS: PANTOPRAZOLE 40 MG VIAL IV SCH (09:51)
[2017-11-19] MEDS: ENOXAPARIN 40 MG/0.4 ML SYRINGE SUBCUT SCH (09:54)
[2017-11-19] MEDS ORDERED: MEROPENEM 500 MG in SYRINGE 1 EACH IV SCH (10:00)
[2017-11-19] MEDS: ACETAMINOPHEN 325 MG TABLET PO PRN ×2 (14:00→19:50)
[2017-11-19] MEDS: TRACE ELEMENTS (5) 1 ML, MULTIVITAMIN INJ 10 ML in AMINO ACIDS/DEXT/LYTES 5-15% 2,000 ML IV SCH (17:47)
[2017-11-19] MEDS ORDERED: IBUPROFEN 100 MG/5 ML UDCUP PO PRN (21:22)
[2017-11-19] MEDS ORDERED: IBUPROFEN 100 MG/5 ML UDCUP PO ONE (21:22)
[2017-11-19] MEDS: PIPERACILLIN/TAZOBACTAM 3,375 MG in SODIUM CHLORIDE 0.9% 100 ML IV SCH (21:27)
[2017-11-19] MEDS: VANCOMYCIN INJ 1,000 MG in SODIUM CHLORIDE 0.9% 250 ML IV SCH (21:40)
[2017-11-19] MEDS: PHENYLEPHRINE INJ 80 MG in SODIUM CHLORIDE 0.9% 242 ML IV SCH (22:53)
[2017-11-20] MEDS: PIPERACILLIN/TAZOBACTAM 3,375 MG in SODIUM CHLORIDE 0.9% 100 ML IV SCH ×3 (02:17→17:34)
[2017-11-20] MEDS: ACETAMINOPHEN 325 MG TABLET PO PRN (02:17)
[2017-11-20] MEDS: LEVOFLOXACIN INJ 750 MG in PREMIX 1 EACH IV SCH (02:18)
[2017-11-20] MEDS: ALBUTEROL/IPRATROPIUM 3 ML NEB RESP TX SCH ×6 (04:24→22:55)
[2017-11-20 04:46] LABS: ABG Base Excess -4.3 MMOL/L (-2.5-2.5); ABG HCO3 19.9 MMOL/L (20-26); ABG Oxygen Saturation 98.9 % (95-100); ABG PCO2 33.7 MM HG (35-48); ABG PO2 196.4 MM HG (80-95)
[2017-11-20 05:30] LABS: Calcium 7.3 MG/DL (8.5-10.1); Potassium 4.1 MMOL/L (3.5-5.1)
[2017-11-20 06:53] LABS: Basophils # 0.1 10*3/uL (0.0-0.2); Basophils % 0.2 % (0.0-0.8); Eosinophils # 0.1 10*3/uL (0.0-0.87); Eosinophils % 0.3 % (0.00-10.9); Hematocrit 33.4 VOL% (35.7-47.0); Hemoglobin 10.6 GM/DL (12.0-16.0); Immature Granulocytes % 1.3 %; Immature Granulocytes Absolute 0.31 #; Lymphocytes # 8.1 10*3/uL (1.4-4.0); Lymphocytes % 33.6 % (21.3-54.2); Mean Corpuscular HGB Conc 31.7 GM/DL (32-36); Mean Corpuscular Hemoglobin 31 PG (27-34); Mean Corpuscular Volume 97.1 FL (87-102); Monocytes # 2.2 10*3/uL (0.11-0.8); Monocytes % 9.2 % (1.7-12.7); NRBC # 0.03 10*3/uL; Neutrophils # 13.3 10*3/uL (1.4-7.4); Neutrophils % 55.4 % (38.7-73.9); Platelet Count 391 T/CUMM (130-400); Red Blood Count 3.44 MC/CUMM (3.8-5.5); Red Cell Distribution Width 13.9 % (9.3-17.3)
[2017-11-20] MEDS ORDERED: PHENYLEPHRINE DRIP 0 MG/0 ML PREMIX IV ONE (07:07)
[2017-11-20] MEDS: PHENYLEPHRINE INJ 80 MG in SODIUM CHLORIDE 0.9% 242 ML IV SCH ×3 (07:13→22:41)
[2017-11-20 07:24] LABS: Band Neutrophils 29 % (0-10); Lymphocytes 21 % (20-55); Segmented Neutrophils 37 % (50-85); Total Cells Counted 100
[2017-11-20 07:25] LABS: Polychromasia 1+
[2017-11-20 07:26] LABS: Anisocytosis 1+; Poikilocytosis 1+
[2017-11-20] MEDS: PROPOFOL 1,000 MG/100 ML BOTTLE IV SCH ×2 (07:28→10:00)
[2017-11-20] MEDS: ENOXAPARIN 40 MG/0.4 ML SYRINGE SUBCUT SCH (09:44)
[2017-11-20] MEDS: ASPIRIN EC 81 MG TABLET PO SCH (09:44)
[2017-11-20] MEDS: FLUTICASONE 50 MCG NASAL SPRAY 16 GM BOTTLE BOTH NARES SCH (09:44)
[2017-11-20] MEDS: PANTOPRAZOLE 40 MG VIAL IV SCH (09:44)
[2017-11-20] MEDS: TRACE ELEMENTS (5) 1 ML, MULTIVITAMIN INJ 10 ML in AMINO ACIDS/DEXT/LYTES 5-15% 2,000 ML IV SCH (16:55)
[2017-11-20] MEDS: VANCOMYCIN INJ 1,000 MG in SODIUM CHLORIDE 0.9% 250 ML IV SCH (21:36)
[2017-11-21] MEDS: PROPOFOL 1,000 MG/100 ML BOTTLE IV SCH ×3 (00:05→16:52)
[2017-11-21] MEDS: LEVOFLOXACIN INJ 750 MG in PREMIX 1 EACH IV SCH (00:35)
[2017-11-21] MEDS: PIPERACILLIN/TAZOBACTAM 3,375 MG in SODIUM CHLORIDE 0.9% 100 ML IV SCH ×3 (02:03→18:19)
[2017-11-21] MEDS: ALBUTEROL/IPRATROPIUM 3 ML NEB RESP TX SCH ×6 (02:28→23:57)
[2017-11-21 03:39] LABS: Basophils # 0.1 10*3/uL (0.0-0.2); Basophils % 0.3 % (0.0-0.8); Eosinophils # 0.1 10*3/uL (0.0-0.87); Eosinophils % 0.8 % (0.00-10.9); Hematocrit 31.9 VOL% (35.7-47.0); Hemoglobin 10.2 GM/DL (12.0-16.0); Immature Granulocytes % 1.5 %; Immature Granulocytes Absolute 0.27 #; Lymphocytes # 4.9 10*3/uL (1.4-4.0); Mean Corpuscular Hemoglobin 30 PG (27-34); Mean Corpuscular Volume 93.5 FL (87-102); Monocytes % 10.7 % (1.7-12.7); NRBC # 0.04 10*3/uL; Neutrophils # 10.9 10*3/uL (1.4-7.4); Neutrophils % 59.7 % (38.7-73.9); Platelet Count 405 T/CUMM (130-400); Red Blood Count 3.41 MC/CUMM (3.8-5.5); White Blood Count 18.3 T/CUMM (4-12)
[2017-11-21 03:40] LABS: ABG Base Excess -2.1 MMOL/L (-2.5-2.5); ABG HCO3 22.7 MMOL/L (20-26); ABG Oxygen Saturation 99.3 % (95-100); ABG PCO2 38.6 MM HG (35-48); ABG PH 7.378 (7.35-7.45); ABG TCO2 20.6 MMOL/L (23-27); Allen Test Positive; Pt O2 Delivery Device Ventilator
[2017-11-21 04:14] LABS: Calcium 7.3 MG/DL (8.5-10.1); Osmolality,Calculated 290.1 MOS/KG (273-304); Potassium 4.3 MMOL/L (3.5-5.1)
[2017-11-21 04:30] LABS: Prealbumin 13.3 MG/DL (20-40)
[2017-11-21] MEDS: PHENYLEPHRINE INJ 80 MG in SODIUM CHLORIDE 0.9% 242 ML IV SCH ×2 (07:01→18:14)
[2017-11-21] MEDS: PANTOPRAZOLE 40 MG VIAL IV SCH (09:04)
[2017-11-21] MEDS: ASPIRIN EC 81 MG TABLET PO SCH (09:06)
[2017-11-21] MEDS: ENOXAPARIN 40 MG/0.4 ML SYRINGE SUBCUT SCH (09:06)
[2017-11-21] MEDS: FLUTICASONE 50 MCG NASAL SPRAY 16 GM BOTTLE BOTH NARES SCH (09:18)
[2017-11-21] MEDS: FUROSEMIDE 40 MG/4 ML VIAL IV SCH (12:59)
[2017-11-21] MEDS ORDERED: GLUCAGON 1 MG VIAL IM PRN (16:39)
[2017-11-21] MEDS ORDERED: DEXTROSE 50% 25 GM/50 ML VIAL IV PRN (16:39)
[2017-11-21] MEDS: TRACE ELEMENTS (5) 1 ML, MULTIVITAMIN INJ 10 ML in AMINO ACIDS/DEXT/LYTES 5-15% 2,000 ML IV SCH (16:44)
[2017-11-21] MEDS: ACETAMINOPHEN 325 MG TABLET PO PRN (20:09)
[2017-11-21] MEDS: INSULIN REGULAR 100 UNIT/ML SUBCUT SCH (20:13)
[2017-11-22] MEDS: VANCOMYCIN INJ 1,000 MG in SODIUM CHLORIDE 0.9% 250 ML IV SCH (00:26)
[2017-11-22] MEDS: PHENYLEPHRINE INJ 80 MG in SODIUM CHLORIDE 0.9% 242 ML IV SCH ×2 (00:29→10:30)
[2017-11-22] MEDS: INSULIN REGULAR 100 UNIT/ML SUBCUT SCH ×3 (00:32→12:06)
[2017-11-22] MEDS: LEVOFLOXACIN INJ 750 MG in PREMIX 1 EACH IV SCH (01:54)
[2017-11-22] MEDS: PIPERACILLIN/TAZOBACTAM 3,375 MG in SODIUM CHLORIDE 0.9% 100 ML IV SCH ×2 (02:28→10:44)
[2017-11-22] MEDS: ALBUTEROL/IPRATROPIUM 3 ML NEB RESP TX SCH ×3 (03:05→10:55)
[2017-11-22 06:19] LABS: Calcium 7.5 MG/DL (8.5-10.1); Magnesium 2.1 MG/DL (1.8-2.4); Osmolality,Calculated 293.8 MOS/KG (273-304); Potassium 4.1 MMOL/L (3.5-5.1)
[2017-11-22 07:32] LABS: ABG Base Excess 0.8 MMOL/L (-2.5-2.5); ABG HCO3 25.1 MMOL/L (20-26); ABG Oxygen Saturation 99.4 % (95-100); ABG PCO2 35.2 MM HG (35-48); ABG TCO2 22.2 MMOL/L (23-27)
[2017-11-22 08:36] LABS: ABG Base Excess 0.7 MMOL/L (-2.5-2.5); ABG HCO3 25.7 MMOL/L (20-26); ABG Oxygen Saturation 98.9 % (95-100); ABG PCO2 43.2 MM HG (35-48); ABG PH 7.393 (7.35-7.45); ABG PO2 179.6 MM HG (80-95); ABG TCO2 27.1 MMOL/L (23-27)
[2017-11-22] MEDS: FUROSEMIDE 40 MG/4 ML VIAL IV SCH (10:01)
[2017-11-22] MEDS: ASPIRIN EC 81 MG TABLET PO SCH (10:02)
[2017-11-22] MEDS: PANTOPRAZOLE 40 MG VIAL IV SCH (10:02)
[2017-11-22] MEDS: ENOXAPARIN 40 MG/0.4 ML SYRINGE SUBCUT SCH (10:02)
[2017-11-22] MEDS: FLUTICASONE 50 MCG NASAL SPRAY 16 GM BOTTLE BOTH NARES SCH (10:03)
[2017-11-22 15:58] VITALS: BP 105/58
[2017-11-22] MEDS ORDERED: VANCOMYCIN INJ 1,000 MG in SODIUM CHLORIDE 0.9% 250 ML IV SCH (18:00)
== END 2017-11-22 14:20 | DRG 388 ==
LOC: EDUNIT# → EDBD → N.ED 17:37 → SUATTDRO 22:18 → N.EDINP 22:18 → N.3E 22:50 → N.ICU 11-18 05:22
PROVIDERS: ADMIT Surgery; ATTEND Internal Medicine